=== PATIENT | female | born 1995 | race Caucasian/White ===

== ENCOUNTER → 2018-04-10 14:39 | Outpatient (CLI) | payer MEDICAID ==
[2015-08-24 00:49] VITALS: BMI 39.1
[~2018-04-10 14:39] MED LIST: HYDROCODON-ACE1 EAC7 PO; IBUPROFEN600 MG PO; PRENAVITE1 TAB PO
[2018-04-10 15:46] LABS: APPEARANCE CLEAR (CLEAR); BILIRUBIN NEGATIVE (NEGATIVE); COLOR YELLOW (YELLOW); GLUCOSE NEGATIVE (NEGATIVE); KETONE NEGATIVE (NEGATIVE); NITRITE NEGATIVE (NEGATIVE); PROTEIN NEGATIVE (NEGATIVE); SPECIFIC GRAVITY 1.015 (1.005-1.020); UROBILINOGEN NORMAL (NORMAL)
[2018-04-10 15:48] LABS: WHITE CELLS - URINE 0-5 /hpf (0-5)
[2018-04-10 15:51] LABS: BACTERIA MODERATE /hpf (NONE SEEN); EPITHELIAL CELLS 0-5 /hpf (0-5); RED CELLS - URINE 0-5 /hpf (0-5)
== END | disposition home or self-care (01) ==
LOC: D.LDO 14:39
PROVIDERS: Obstetrics & Gynecology
DX: O26.892 Other specified pregnancy related conditions, second trimester (principal); Z3A.25 25 weeks gestation of pregnancy; M54.5 Low back pain; R10.30 Lower abdominal pain, unspecified

== ENCOUNTER 2018-07-15 05:00 | Inpatient (IN) | payer MEDICAID ==
[~2018-07-15] VITALS: Ht 177.8 cm; Wt 118.8 kg
[2018-07-15 05:35] LABS: HEMATOCRIT 31.9 % (36.0-48.0); HEMOGLOBIN 10.6 g/dL (12-16); MCH 24.8 pg (26.0-34.0); MCHC 33.2 g/dL (31.0-37.0); MCV 74.7 fL (80.0-100.0); RBC 4.27 10x6/uL (4.00-5.40); WBC 10.1 10x3/uL (4.8-10.8)
[2018-07-15 05:37] LABS: PLATELET COUNT 143 10x3/uL (130-400)
[2018-07-15 05:50] VITALS: BP 103/63; Ht 177.8 cm; Wt 118.8 kg
[2018-07-15 06:48] LABS: APPEARANCE HAZY (CLEAR); COLOR YELLOW (YELLOW)
[2018-07-15 06:49] LABS: BACTERIA FEW /hpf (NONE SEEN); BILIRUBIN NEGATIVE (NEGATIVE); EPITHELIAL CELLS 0-5 /hpf (0-5); GLUCOSE NEGATIVE (NEGATIVE); KETONE NEGATIVE (NEGATIVE); MUCUS <1+ /lpf (NONE SEEN); NITRITE NEGATIVE (NEGATIVE); PROTEIN NEGATIVE (NEGATIVE); UROBILINOGEN NORMAL (NORMAL); WHITE CELLS - URINE 0-5 /hpf (0-5)
[2018-07-15 17:37] VITALS: BP 112/61
[2018-07-15 19:22] VITALS: BP 113/69
[2018-07-16 06:11] LABS: BASOPHILS 0.2 % (0-2); EOSINOPHILS 1.1 % (0-7); HEMATOCRIT 30.9 % (36.0-48.0); HEMOGLOBIN 9.8 g/dL (12-16); IMMATURE GRANULOCYTES 0.7 % (0-5); LYMPHOCYTES 18.7 % (15-50); MCH 23.9 pg (26.0-34.0); MCHC 31.7 g/dL (31.0-37.0); MCV 75.4 fL (80.0-100.0); MONOCYTES 12.8 % (2-11); NEUTROPHILS 66.5 % (40-80); PLATELET COUNT 122 10x3/uL (130-400); RDW 15.2 % (11.5-14.5); WBC 11.9 10x3/uL (4.8-10.8)
[2018-07-16 07:20] VITALS: BP 107/69
[2018-07-16 07:32] LABS: RAPID PLASMA REAGIN Non Reactive (Non Reactive)
[2018-07-16 12:06] VITALS: BP 106/68
[2018-07-16 20:20] VITALS: BP 101/64
[2018-07-17 07:40] VITALS: BP 130/73
[2018-07-17 12:30] VITALS: BP 113/56
== END 2018-07-17 14:45 | disposition home or self-care (01) | DRG 774 ==
LOC: D.LD 05:00 → D.WS 05:00
PROVIDERS: Obstetrics & Gynecology
PROC: 10E0XZZ Delivery of Products of Conception, External Approach (ICD-10-PCS; principal; 2018-07-15)
PROC: 3E033VJ Introduction of Other Hormone into Peripheral Vein, Percutaneous Approach (ICD-10-PCS; 2018-07-15)
PROC: 0UQMXZZ Repair Vulva, External Approach (ICD-10-PCS; 2018-07-15)
DX: O99.824 Streptococcus B carrier state complicating childbirth (principal); O98.22 Gonorrhea complicating childbirth; B00.9 Herpesviral infection, unspecified; O99.334 Smoking (tobacco) complicating childbirth; O71.82 Other specified trauma to perineum and vulva; O69.81X0 Labor and delivery complicated by cord around neck, without compression, not applicable or unspecified; Z3A.39 39 weeks gestation of pregnancy; Z37.0 Single live birth